=== PATIENT | male | born 1995 | race Caucasian/White ===

== ENCOUNTER 2020-06-24 16:54 | Emergency (ER) | payer SELFPAY ==
[~2020-06-24] VITALS: Ht 157.5 cm; Wt 78.6 kg
[2020-06-24 17:02] VITALS: Ht 157.5 cm; Wt 78.6 kg
[2020-06-24 18:00] LABS: BASOPHILS 0.1 % (0-2); EOSINOPHILS 0.6 % (0-7); HEMATOCRIT 43.3 % (42.0-54.0); HEMOGLOBIN 14.8 g/dL (13.5-17.5); IMMATURE GRANULOCYTES 0.3 % (0-5); LYMPHOCYTES 9.7 % (15-50); MCH 32.2 pg (26.0-34.0); MCHC 34.2 g/dL (31.0-37.0); MCV 94.3 fL (80.0-100.0); MEAN PLATELET VOLUME 10.6 fL (7.4-10.4); MONOCYTES 6.1 % (2-11); NEUTROPHILS 83.2 % (40-80); PLATELET COUNT 196 10x3/uL (130-400); RBC 4.59 10x6/uL (4.20-6.10); RDW 12.9 % (11.5-14.5); WBC 11.9 10x3/uL (4.8-10.8)
[2020-06-24 18:05] LABS: BILIRUBIN NEGATIVE (NEGATIVE); KETONE NEGATIVE (NEGATIVE); NITRITE NEGATIVE (NEGATIVE); UROBILINOGEN NORMAL mg/dL (< 2)
[2020-06-24 18:09] LABS: UDS - AMPHET NEGATIVE QUAL (NEGATIVE); UDS - BARB POSITIVE QUAL (NEGATIVE); UDS - BENZO NEGATIVE QUAL (NEGATIVE); UDS - COCAINE NEGATIVE QUAL (NEGATIVE); UDS - OPIATE NEGATIVE QUAL (NEGATIVE); UDS - PCP NEGATIVE QUAL (NEGATIVE); UDS - THC NEGATIVE QUAL (NEGATIVE)
[2020-06-24 18:24] LABS: CALC OSMOLALITY 272 mosm/kg (275-300); CALCIUM 9.3 mg/dL (8.5-10.1); CARBON DIOXIDE 26.7 mmol/L (21.0-32.0); CHLORIDE - SERUM 103 mmol/L (98-107); CREATININE - SERUM 0.9 mg/dL (0.6-1.3); GLUCOSE 98 mg/dL (74-106); POTASSIUM - SERUM 3.4 mmol/L (3.5-5.1); SODIUM 137 mmol/L (136-145); UREA NITROGEN 9 mg/dL (7-18); eGFR NON AFRICAN AMERICAN > 90 mL/min (90-120)
[2020-06-24 18:31] LABS: ALBUMIN 4.4 g/dL (3.4-5.0); ALKALINE PHOSPHATASE 83 U/L (30-120); ALT (SGPT) 23 U/L (10-68); BILIRUBIN - TOTAL 0.14 mg/dL (0.2-1.3); MAGNESIUM - SERUM 2.2 mg/dL (1.8-2.4); PROTEIN - SERUM 7.8 g/dL (6.4-8.2)
[2020-06-24] MEDS ORDERED: KEPPRA750 MG PO (19:03)
[2020-06-24 21:02] VITALS: BP 94/59
== END 2020-06-24 20:14 | disposition home or self-care (01) ==
LOC: D.ER 16:54
PROVIDERS: Family Medicine
DX: R56.9 Unspecified convulsions (principal); S09.90XA Unspecified injury of head, initial encounter; W19.XXXA Unspecified fall, initial encounter; E87.6 Hypokalemia; D72.829 Elevated white blood cell count, unspecified; S00.03XA Contusion of scalp, initial encounter

== ENCOUNTER 2020-07-01 16:52 | Emergency (ER) | payer SELFPAY ==
[~2020-07-01] VITALS: Ht 157.5 cm; Wt 77.3 kg
[~2020-07-01 16:52] MED LIST: KEPPRA750 MG PO
[2020-07-01 17:30] VITALS: Ht 157.5 cm; Wt 77.3 kg
[2020-07-01 18:30] VITALS: BP 128/85
== END 2020-07-01 18:31 | disposition home or self-care (01) ==
LOC: D.ER 16:52
DX: G40.909 Epilepsy, unspecified, not intractable, without status epilepticus (principal)